=== PATIENT | female | born 1975 | race Caucasian/White ===

== ENCOUNTER 2019-08-19 13:04 | Emergency (ER) | payer MEDICAID ==
[~2019-08-19] VITALS: Ht 170.2 cm; Wt 72.6 kg
--- NOTE | 2019-08-19 13:04 | NUR ---
Patient to ER bed 03 to gown for evaluation. Side rails up.
[2019-08-19 13:06] VITALS: BP_SYST 157
--- NOTE | 2019-08-19 13:06 | NUR ---
pt arrives from home w/ c/o LONG (back of the head) 8/, stabbing pain, and nausea. Pt has had this pain since Sunday. Pt ahs been taking Ibuprofen w/out relief. Last does of Ibuprofen was 800mg at 0600 today. Will continue to monitor
--- NOTE | 2019-08-19 13:14 | NUR ---
ER at bedside examining patient.
[2019-08-19] MEDS ORDERED: traMADol HCL HCL 50 MG TABLET (ULTRAM) PO ONE (13:30)
[2019-08-19] MEDS ORDERED: ONDANSETRON 4 MG ODT TAB PO ONE (13:30)
--- NOTE | 2019-08-19 13:30 | NUR ---
medicated the pt w/ Tramadol and Zofran per md order. Will reassess
--- NOTE | 2019-08-19 13:45 | NUR ---
Patient transported to radiology via , accompanied by auto radiator mechanic.
--- NOTE | 2019-08-19 15:03 | NUR ---
Patient moved to bed 5.
[2019-08-19 15:06] VITALS: BP_SYST 157
--- NOTE | 2019-08-19 15:07 | NUR ---
Patient given written and verbal discharge instructions and verbalizes understanding. ER MD discussed with patient the results and treatment provided. Patient in stable condition. ID arm band removed. Rx of Tramadol, Zofran, and Robaxin given. Patient educated on pain management and to follow up with PMD. Pain Scale 3/10. Opportunity for questions provided and answered. Medication side effect fact sheet provided.
== END 2019-08-19 15:07 | disposition home or self-care (01) ==
LOC: SED 13:04
DX: S16.1XXA Strain of muscle, fascia and tendon at neck level, initial encounter (principal); X50.3XXA Overexertion from repetitive movements, initial encounter; Y93.89 Activity, other specified; Y92.89 Other specified places as the place of occurrence of the external cause; Y99.8 Other external cause status
CPT/HCPCS: 72125; 99284; Q0162

== ENCOUNTER 2019-09-03 09:28 | Emergency (ER) | payer MEDICAID ==
[~2019-09-03] VITALS: Ht 175.3 cm; Wt 74.8 kg
[2019-09-03 09:28] VITALS: BP_SYST 152
--- NOTE | 2019-09-03 09:48 | NUR ---
BROUGHT BACK TO BED #2 AND TRIAGED. REPORT GIVEN TO CAROLA
--- NOTE | 2019-09-03 09:58 | NUR ---
DR OGLESBY AT BEDSIDE FOR EVALUATION
--- NOTE | 2019-09-03 10:05 | NUR ---
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 She was seen previously for a cervical strain. She is resting comfortably in bed at this time VSS.
[2019-09-03 10:34] VITALS: BP_SYST 140
--- NOTE | 2019-09-03 10:35 | NUR ---
Patient given written and verbal discharge instructions and verbalizes understanding. ER MD discussed with patient the results and treatment provided. Patient in stable condition. ID arm band removed. Rx of ROBAXIN, NORCO, NAPROXEN given. Patient educated on pain management and to follow up with PMD. Pain Scale 0/10. Opportunity for questions provided and answered. Medication side effect fact sheet provided.
== END 2019-09-03 10:35 | disposition home or self-care (01) ==
LOC: SED 09:28
DX: M54.12 Radiculopathy, cervical region (principal)
CPT/HCPCS: 99283

== ENCOUNTER 2019-09-30 13:43 | Emergency (ER) | payer MEDICAID ==
[~2019-09-30] VITALS: Ht 175.3 cm; Wt 77.1 kg
[2019-09-30 13:50] VITALS: BP_SYST 144
--- NOTE | 2019-09-30 13:55 | NUR ---
Patient triaged and placed in waiting room. VSS and patient appears in no acute distress at this time. Awaiting available bed, and MD notified of need for MSE.
--- NOTE | 2019-09-30 16:55 | NUR ---
ER Dr. FERREIRA at bedside examining patient.
--- NOTE | 2019-09-30 18:10 | NUR ---
Patient to ER bed 3 to gown for evaluation. Side rails up.
--- NOTE | 2019-09-30 18:11 | NUR ---
ASSUMED CARE OF PT, ATTACHED TO MONITOR, SIDE RAILS UP.
--- NOTE | 2019-09-30 18:12 | NUR ---
PT AAO AND AMBULATORY C/O NECK PAIN AND ARM NUMBNESS SINCE SUNDAY. PAIN 8/10 CURRENTLY IN NECK.
--- NOTE | 2019-09-30 18:49 | NUR ---
DR. ELMORE AT BEDSIDE RE-EVALUATING PT STATUS.
[2019-09-30] MEDS ORDERED: KETOROLAC TROMETHAMINE 30 MG VIAL IM ONE (19:00)
[2019-09-30 19:22] VITALS: BP_SYST 144
--- NOTE | 2019-09-30 19:22 | NUR ---
PT PAIN IMPROVED 2/10.
--- NOTE | 2019-09-30 19:23 | NUR ---
Patient given written and verbal discharge instructions and verbalizes understanding. DR. JHON AU MD discussed with patient the results and treatment provided. Patient in stable condition. ID arm band removed. Rx of NORCO AND ROBAXIN given. Patient educated on pain management and to follow up with PMD. Pain Scale 2/10. Opportunity for questions provided and answered. Medication side effect fact sheet provided.
== END 2019-09-30 19:22 | disposition home or self-care (01) ==
LOC: SED 13:43
DX: M19.90 Unspecified osteoarthritis, unspecified site (principal); M54.12 Radiculopathy, cervical region
CPT/HCPCS: 70450; 72125; 81025; 96372; 99285; J1885

== ENCOUNTER 2019-11-12 23:34 | Emergency (ER) | payer SELFPAY ==
[~2019-11-12] VITALS: Ht 175.3 cm; Wt 74.8 kg
[2019-11-12 23:48] VITALS: BP_SYST 138
[2019-11-13] MEDS ORDERED: PREDNISONE 20 MG TABLET PO ONE (00:15)
[2019-11-13] MEDS ORDERED: predniSONE 1 MG TABLET PO ONE (00:15)
[2019-11-13] MEDS ORDERED: FAMOTIDINE 20 MG TABLET PO ONE (00:15)
[2019-11-13] MEDS ORDERED: DIPHENHYDRAMINE INJ 50 MG/ML VIAL IM ONE (01:15)
[2019-11-13 02:20] VITALS: BP_SYST 139
== END 2019-11-13 02:20 | disposition home or self-care (01) ==
LOC: SED 23:34
DX: T78.49XA Other allergy, initial encounter (principal); X58.XXXA Exposure to other specified factors, initial encounter
CPT/HCPCS: 96372; 99285; J1200; J7512

== ENCOUNTER 2019-11-15 09:14 | Emergency (ER) | payer MEDICAID ==
[~2019-11-15] VITALS: Ht 175.3 cm; Wt 74.8 kg
[2019-11-15 09:21] VITALS: BP_SYST 129
[2019-11-15] MEDS ORDERED: DIPHENHYDRAMINE INJ 50 MG/ML VIAL IM ONE (09:30)
[2019-11-15] MEDS ORDERED: methylPREDNISolone SOD SUCC/PF 62.5 MG/ML VIAL IM ONE (09:30)
[2019-11-15 10:01] VITALS: BP_SYST 129
== END 2019-11-15 10:01 | disposition home or self-care (01) ==
LOC: SED 09:14
DX: L50.9 Urticaria, unspecified (principal); Z88.0 Allergy status to penicillin
CPT/HCPCS: 96372; 99284; J1200; J2930

== ENCOUNTER 2019-11-17 20:02 | Emergency (ER) | payer MEDICAID ==
[~2019-11-17] VITALS: Ht 175.3 cm; Wt 74.8 kg
[2019-11-17 20:05] VITALS: BP_SYST 153
--- NOTE | 2019-11-17 20:05 | NUR ---
Placed in room 6 . Placed on media monitor, blood pressure machine and pulse oximeter. To gown for exam. Side rails up. Report given to Yemi GARCÍA.
[2019-11-17] MEDS ORDERED: ASPIRIN 325 MG TABLET PO ONE (20:15)
[2019-11-17] MEDS ORDERED: ALBUTEROL MDI INHALATION 8 GM INH INH PRN (20:15)
[2019-11-17] MEDS ORDERED: DIPHENHYDRAMINE HCL 25 MG CAPSULE PO ONE (20:15)
--- NOTE | 2019-11-17 20:15 | NUR ---
Pt brought in by self. Pt awake, alert, oriented x4. Pt ambulatory with steady gait. pt states she has new onset of chest pain, rapid breathing numbness and tingling in the hand and arms. Pt states that she does not know of any precipitating factors. Pt denies SOB, N/V/D, Pt denies cough or any other medical complaint at this time
--- NOTE | 2019-11-17 20:15 | NUR ---
ER at bedside examining patient.
[2019-11-17 20:34] LABS: BASOPHILS # (AUTO) 0.2 K/uL (0.0-0.2); BASOPHILS % (AUTO) 2.3 % (0.0-2.0); EOSINOPHILS % (AUTO) 0.4 % (0.0-4.0); HEMATOCRIT 39.2 % (36-48); HEMOGLOBIN 13.7 g/dL (12.0-16.0); LYMPHOCYTES # (AUTO) 0.8 K/uL (1.0-5.5); LYMPHOCYTES % (AUTO) 9.9 % (20.5-51.5); MEAN CORPUSCULAR HEMOGLOBIN 33 pg (27-31); MEAN CORPUSCULAR HGB CONC 35 % (32-36); MEAN CORPUSCULAR VOLUME 93 fL (79.0-98.0); MONOCYTES # (AUTO) 0.3 K/uL (0.0-1.0); MONOCYTES % (AUTO) 3.1 % (1.7-9.3); NEUTROPHILS # (AUTO) 7.2 K/uL (1.8-7.7); NEUTROPHILS % (AUTO) 84.3 % (40.0-70.0); PLATELET COUNT (AUTO) 273 K/uL (130-430); RED BLOOD CELL COUNT(AUTO) 4.21 MIL/uL (4.2-6.2); RED CELL DISTRIBUTION WIDTH 12.7 % (9.0-15.0); WHITE BLOOD COUNT (AUTO) 8.5 K/uL (4.8-10.8)
[2019-11-17 21:05] LABS: ANION GAP 9 (5-15); CALCIUM 9.2 mg/dL (8.4-11.0); CHLORIDE 103 mmol/L (98-107); CREATININE 0.91 mg/dL (0.55-1.30); GLUCOSE 157 mg/dL (70-99); POTASSIUM 3.7 mmol/L (3.5-5.1); SODIUM SERUM 139 mmol/L (136-145); UREA NITROGEN, BLOOD 19 mg/dL (8-21)
[2019-11-17 21:09] LABS: GFR AFRICAN AMERICAN 87 mL/min (>90)
[2019-11-17 21:13] LABS: ALANINE AMINOTRANSFERASE 28 U/L (12-78); ALBUMIN 3.2 g/dL (3.4-4.8); ASPARTATE AMINOTRANSFERASE 18 U/L (10-37); TOTAL BILIRUBIN 0.3 mg/dL (0.0-1.0)
[2019-11-17] MEDS ORDERED: ALBUTEROL SULFATE 0.083% 2.5 MG/3 ML VIAL.NEB INH ONE ×2 (21:30→21:51)
[2019-11-17 21:54] VITALS: BP_SYST 130
--- NOTE | 2019-11-17 21:54 | NUR ---
Patient given written and verbal discharge instructions and verbalizes understanding. ER MD discussed with patient the results and treatment provided. Patient in stable condition. ID arm band removed.No IV Rx of Protonix given. Patient educated on pain management and to follow up with PMD. Pain Scale 0/10. Opportunity for questions provided and answered. Medication side effect fact sheet provided.
== END 2019-11-17 21:54 | disposition home or self-care (01) ==
LOC: SED 20:02
DX: R07.89 Other chest pain (principal); Z88.0 Allergy status to penicillin
CPT/HCPCS: 36415; 71045; 80053; 84484; 85025; 93005; 94640; 99285; J7613; Q0163